=== PATIENT | female | born 1955 | race Caucasian/White ===

== ENCOUNTER 2018-01-27 10:50 | Emergency (ER) | payer OTHER | END 2018-01-27 13:20 | disposition home or self-care (01) | LOC: FTE 10:50 | DX: S00.212A Abrasion of left eyelid and periocular area, initial encounter (principal); F17.210 Nicotine dependence, cigarettes, uncomplicated; W22.8XXA Striking against or struck by other objects, initial encounter; Y92.9 Unspecified place or not applicable | CPT/HCPCS: 99282; Z7502 ==